=== PATIENT | female | born 1975 | race Caucasian/White ===

== ENCOUNTER 2017-02-06 10:57 | Emergency (ER) | payer OTHER ==
[2017-02-06 11:23] LABS: BASOPHIL 0.2 % (0-2); EOSINOPHIL 0.4 % (0-5); HGB 13.6 g/dl (12.5-16.0); LYMPHOCYTE 9.8 % (15-48); MCH 27.5 pg (25.0-31.0); MCHC 33.2 g/dL (32.0-36.0); MONOCYTE 6.4 % (0-12); MPV 9.1 fL (6.0-9.5); NEUTROPHIL 83.2 % (41-80); PLT 322 K/uL (150-400); RBC 4.94 M/uL (4.20-5.40); RDW 14.6 % (11.5-14.0); WBC 9.3 K/uL (4.0-10.5)
[2017-02-06 11:38] LABS: BILIRUBIN - TOTAL 0.6 mg/dL (0.1-1.0); CREATININE 0.7 mg/dL (0.5-1.0); GLOBULIN (CALCULATION) 3.1 g/dL (2.2-4.2); MAGNESIUM 1.89 mg/dL (1.40-2.10); MYOGLOBIN 21 ng/mL (26-65); POTASSIUM 3.7 mmol/L (3.5-5.1); TOTAL PROTEIN 7.1 g/dL (6.4-8.3); TROPONIN T < 0.010 ng/mL
[2017-02-06 11:41] LABS: PRO-BNP 243 pg/mL (0-125); PTT 28.4 SECONDS (23.2-31.4)
[2017-02-06 11:42] LABS: INR 0.97 (0.9-1.2); PROTHROMBIN TIME 12.5 SECONDS (11.7-14.0)
== END 2017-02-06 14:05 | disposition home or self-care (01) ==
LOC: FER 10:57
PROVIDERS: Emergency Medicine
DX: J18.1 Lobar pneumonia, unspecified organism (principal); M94.0 Chondrocostal junction syndrome [Tietze]; R51 Headache; I10 Essential (primary) hypertension; Z86.718 Personal history of other venous thrombosis and embolism; Z86.711 Personal history of pulmonary embolism; Z82.49 Family history of ischemic heart disease and other diseases of the circulatory system; Z79.899 Other long term (current) drug therapy
CPT/HCPCS: 36415; 71010; 71275; 80053; 82550; 82553; 83735; 83874; 83880; 84484; 85025; 85379; 85610; 85730; 87804; 87899; 93005; J1885; Q9967

== ENCOUNTER 2021-09-09 05:54 | Emergency (ER) | payer MEDICAID ==
[~2021-09-09 05:54] MED LIST: ASPIRIN EC81 MG PO; BUSPAR5 MG PO; FLEXERIL10 MG PO; FLOMAX0.4 MG PO; IBUPROFEN800 MG PO; LEXAPRO20 MG PO; LIPITOR20 MG PO; LISINOPRIL-HCT1 EAC1 PO; MEDROL 4MG DOSEP4 MG PO; MOTRIN600 MG PO; NAPROXEN500 MG PO; NORCO 5-325 TA1 EACH PO; PHENERGAN25 M1 PO; PRINIVIL20 MG PO; PRISTIQ50 MG PO; PROTONIX 40MG T40 MG PO; ROBAXIN500 MG PO; VIIBRYD20 MG PO; ZOFRAN4 MG PO; ZOFRAN4 MG SL
[2021-09-09 06:39] LABS: BASOPHIL 0.5 % (0-2); EOSINOPHIL 2.3 % (0-5); HCT 39.9 % (37.0-47.0); HGB 12.9 g/dl (12.5-16.0); LYMPHOCYTE 27.9 % (15-48); MCH 28.3 pg (25.0-31.0); MCHC 32.3 g/dL (32.0-36.0); MCV 87.5 fL (78.0-100.0); MONOCYTE 7.5 % (0-12); MPV 9.1 fL (6.0-9.5); NEUTROPHIL 61.2 % (41-80); NRBC 0; PLT 338 K/uL (150-400); RBC 4.56 M/uL (4.20-5.40); RDW 13.3 % (11.5-14.0); WBC 6.4 K/uL (4.0-10.5)
[2021-09-09 06:55] LABS: BILIRUBIN NEGATIVE (NEGATIVE); BLOOD 3+ Ery/uL (NEGATIVE); CLARITY CLEAR (CLEAR); COLOR YELLOW (YELLOW); GLUCOSE (U) NORMAL (NORMAL); LEUKOCYTES TRACE Leu/uL (NEGATIVE); NITRITE NEGATIVE (NEGATIVE); PROTEIN NEGATIVE (NEGATIVE); SPECIFIC GRAVITY >=1.030 (1.001-1.030); UROBILINOGEN 0.2 mg/dL (0.2-1.0)
[2021-09-09 07:07] LABS: CREATININE 1.07 mg/dL (0.51-0.95); POTASSIUM 3.6 mmol/L (3.5-5.1)
[2021-09-09 07:20] LABS: BACTERIA TRACE
[2021-09-09] MEDS ORDERED: ONDANSETRON ODT4 MG SL (07:49)
[2021-09-09] MEDS ORDERED: FLOMAX0.4 MG PO (07:49)
[2021-09-09] MEDS ORDERED: NORCO 5-325 TA1 EACH PO (07:49)
== END 2021-09-09 09:15 | disposition home or self-care (01) ==
LOC: FER 05:54
PROVIDERS: Emergency Medicine Emergency Medical Services
DX: N13.2 Hydronephrosis with renal and ureteral calculous obstruction (principal); I10 Essential (primary) hypertension
CPT/HCPCS: 36415; 80048; 81001; 85025; J1170; J1885; J2405; J7030

== ENCOUNTER 2022-05-09 11:31 | Emergency (ER) | payer OTHER ==
[~2022-05-09 11:31] MED LIST changes: +CYCLOBENZAPRINE10 MG PO; +MACROBID100 MG PO; +ONDANSETRON ODT4 MG SL; +PREDNISONE 20MG20 MG PO
[2022-05-09 12:16] LABS: BASOPHIL 0.6 % (0-2); EOSINOPHIL 1.1 % (0-5); HCT 39.9 % (37.0-47.0); HGB 13.1 g/dl (12.5-16.0); LYMPHOCYTE 29.9 % (15-48); MCH 28.1 pg (25.0-31.0); MCHC 32.8 g/dL (32.0-36.0); MCV 85.4 fL (78.0-100.0); MONOCYTE 7.2 % (0-12); MPV 8.9 fL (6.0-9.5); NEUTROPHIL 60.6 % (41-80); NRBC 0; PLT 293 K/uL (150-400); RBC 4.67 M/uL (4.20-5.40); RDW 13.7 % (11.5-14.0); WBC 7.2 K/uL (4.0-10.5)
[2022-05-09 12:24] LABS: BILIRUBIN NEGATIVE (NEGATIVE); BLOOD NEGATIVE Ery/uL (NEGATIVE); CLARITY CLEAR (CLEAR); COLOR YELLOW (YELLOW); GLUCOSE (U) NORMAL (NORMAL); LEUKOCYTES NEGATIVE Leu/uL (NEGATIVE); NITRITE NEGATIVE (NEGATIVE); PROTEIN NEGATIVE (NEGATIVE); SPECIFIC GRAVITY 1.015 (1.001-1.030); UROBILINOGEN 0.2 mg/dL (0.2-1.0); pH 7.5 (5.0-9.0)
[2022-05-09 12:36] LABS: ALBUMIN 3.1 g/dL (3.4-5.0); ALKALINE PHOSHATASE 96 U/L (46-116); ALT 27 U/L (14-59); AST 19 U/L (15-37); BILIRUBIN - TOTAL 0.3 mg/dL (0.2-1.0); BUN 17 mg/dL (7-18); BUN/CREAT RATIO (CALC) 24.3 RATIO; CHLORIDE 101 mmol/L (98-107); CO2 (BICARBONATE) 29 mmol/L (21-32); GLUCOSE 92 mg/dL (74-106); POTASSIUM 3.5 mmol/L (3.5-5.1); TOTAL PROTEIN 7.1 g/dL (6.4-8.2)
[2022-05-09 13:00] LABS: CORONAVIRUS 2019 SARS-COV-2 NEGATIVE (NEGATIVE); INFLUENZA A NAA NEGATIVE (NEGATIVE)
[2022-05-09] MEDS ORDERED: FIORICET1 EACH PO (14:52)
== END 2022-05-09 15:40 | disposition home or self-care (01) ==
LOC: FER 11:31
PROVIDERS: Nurse Practitioner Family
DX: B34.9 Viral infection, unspecified (principal); R07.89 Other chest pain; I10 Essential (primary) hypertension; Z20.822 Contact with and (suspected) exposure to COVID-19; Z86.711 Personal history of pulmonary embolism; Z86.718 Personal history of other venous thrombosis and embolism; Z79.01 Long term (current) use of anticoagulants; Z79.899 Other long term (current) drug therapy
CPT/HCPCS: 36415; 71046; 80053; 81003; 84484; 85025; 85379; 93005; J1100; J1885; J7030; U0002